=== PATIENT | female | born 1960 | race Caucasian/White ===

== ENCOUNTER 2017-12-08 07:16 | Outpatient (CLI) | payer BC ==
[2017-12-08 07:41] LABS: TOTAL HEMOGLOBIN 14.2 G/dl (12.0-16.0)
== END 2017-12-08 23:59 | disposition home or self-care (01) ==
LOC: RT 07:16
PROVIDERS: ATTEND Internal Medicine
DX: R05 Cough (principal)
CPT/HCPCS: 85018; 94010; 94727; 94729